=== PATIENT | male | born 1970 | race Caucasian/White ===

== ENCOUNTER 2016-08-28 06:32 | Inpatient (IN) ==
--- NOTE | 2016-08-28 07:12 | Anesthesia Evaluation PreOp ---
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 Any Significant HX Other Medical History: Other (rectal CA) Anesthesia History: No Prior Anesthetic Complications, Past Anesthesia (spinal for left leg surgery) Alcohol Use: none Drug use: none Medications and Allergies Omeprazole [PriLOSEC] 20 mg PO DAILY #30 cap 05/02/16 [Rx] Prochlorperazine Maleate [Compazine] 10 mg PO Q6HR PRN #60 tablet 05/02/16 [Rx] Sucralfate [Carafate] 1 gm PO QID #120 tablet 06/03/16 [Rx] Allergies Penicillins [PCN] Allergy (Verified 08/28/16 07:10) Unknown Childhood Reaction - Meds/Allergy Pre-op Review Medications Reviewed: Yes Allergies Reviewed: Yes Beta Blockers on Current Med List: No Anesthesia Results - Labs Laboratory Tests 08/20/16 08/20/16 08:40 08:40 Hgb 13.7 Hct 41.1 Plt Count 219 Sodium 144 Potassium 4.0 BUN 12 Creatinine 0.81 Anesthesia Exam Selected Entries 08/28/16 06:56 Temperature 98.3 F Pulse Rate 82 Respiratory Rate 18 Blood Pressure 133/78 O2 Sat by Pulse Oximetry 100 Height: 72in Weight: 270lbs NPO (# of Hours): 8 Pain Scale: 0 Pain Scale Used: Numeric (1 - 10) - HEENT Pupil (Motor): EOMI Mallampati: II Teeth: Normal Oral Opening: Less than or equal to 3 - TIRE ROOM SUPERVISOR LOC: Oriented TIRE ROOM SUPERVISOR Motor: Normal RUE, Normal LUE, Normal RLE, Normal LLE, Normal Face TIRE ROOM SUPERVISOR Sensory: Normal: RUE, LUE, RLE, LLE, Face - Cardiac Rhythm: Regular Murmur: None - Pulmonary Breath Sounds: bilateral Clear Respiratory Effort: Symmetrical Anesthesia Assess/Plan ASA Score: 3 Modified [place] Scale for Level of Consciousness: Cooperative, oriented, and tranquil Anesthetic Plan: General (for 08/29/16), MAC (for 08/28/16) Monitoring Plan: Standard Monitors Recovery Plan: PACU (Discussed MAC for colonscopy and GA for resection. Questions answered and agrees to proceed.)
[2016-08-28] MEDS ORDERED: Simethicone 40 MG/0.6 ML MLS IR ONE (07:53)
[2016-08-28] MEDS ORDERED: *HR* Midazolam HCl 5 MG/5 ML VIAL IVP PRN (07:53)
[2016-08-28] MEDS ORDERED: *HR* FentaNYL (PF) 100 MCG/2 ML VIAL IVP PRN (07:53)
--- NOTE | 2016-08-28 07:53 | History & Physical Report ---
Date of Encounter: 08/28/16 Time of Encounter: 07:52 24 Hour HP Update - Instructions Instructions: If the History and Physical is less than 30 days old and was completed prior to A.M. admission and or procedure and has NOT been updated on calendar day of procedure please complete this update prior to performing procedure. - Update Patient reports changes in Medical Condition: No Changes in assessment/condition: No Changes in Medication: No Preop tests/diagnostics Reviewed: Yes Surgery Remains Indicated: Yes Consent for Planned Operative Procedure(s) Verified: Yes
--- NOTE | 2016-08-28 08:15 | Anesthesia Evaluation Post Op ---
Date of Encounter: 08/28/16 Time of Encounter: 08:13 - Vital Signs Vital Signs: 111/52, 78, 16 99% - Lungs Lungs: Clear Ascult./Percussion - Airway Airway: Non-obstructed - Cardiovascular Regular Rate - Mental Status Mental Status: Alert & Oriented, Answers Appropriately - Pain Pain Scale: 1 Pain Scale used: Numeric (1 - 10) - Nausea Vomiting Nausea Vomiting: Not Present - Hydration Hydration: NPO - Discharge PostOp Status: Transfer Patient to floor (pt fully awake, VSS)
[2016-08-28] MEDS: Ringers Solution, Lactated 1,000 ML IVC SCH (09:10)
[2016-08-28] MEDS ORDERED: *HR* Propofol 500 MG/50 ML BOTTLE IVC ONE (12:58)
[2016-08-28] MEDS ORDERED: Lidocaine -MPF 2% 5 ML VIAL INFILT ONE (12:58)
--- NOTE | 2016-08-28 19:26 | Anesthesia Evaluation PreOp ---
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 Any Significant HX Other Medical History: GERD, Other (Rectal CA) Anesthesia History: No Prior Anesthetic Complications, Past Anesthesia (spinal for Left Leg sx) Alcohol Use: none Drug use: none Medications and Allergies Omeprazole [PriLOSEC] 20 mg PO DAILY #30 cap 05/02/16 [Rx] Prochlorperazine Maleate [Compazine] 10 mg PO Q6HR PRN #60 tablet 05/02/16 [Rx] Sucralfate [Carafate] 1 gm PO QID #120 tablet 06/03/16 [Rx] Allergies Penicillins [PCN] Allergy (Verified 08/28/16 07:10) Unknown Childhood Reaction - Meds/Allergy Pre-op Review Medications Reviewed: Yes Allergies Reviewed: Yes Beta Blockers on Current Med List: No Anesthesia Results - Labs Laboratory Tests 07/04/16 08/20/16 08/20/16 10:57 08:40 08:40 WBC 5.8 Hgb 13.7 Hct 41.1 Plt Count 219 Sodium 144 Potassium 4.0 Chloride 108 Carbon Dioxide 24 BUN 12 Creatinine 0.81 Glucose 102 H Anesthesia Exam O2 Sat Height 1.8 m Height 1.8 m Height 1.8 m Height 1.8 m Weight 127.913 kg Weight 127.913 kg Weight 127.913 kg Weight 127.913 kg O2 Sat by Pulse Oximetry 99 O2 Sat by Pulse Oximetry 97 O2 Sat by Pulse Oximetry 98 O2 Sat by Pulse Oximetry 100 O2 Sat by Pulse Oximetry 99 O2 Sat by Pulse Oximetry 100 Vital Signs Temp Pulse Resp BP Pulse Ox 98.3 F 82 18 133/78 100 08/28/16 06:56 08/28/16 06:56 08/28/16 06:56 08/28/16 06:56 08/28/16 06:56 Vital Signs/O2 Sat, Most Current Temp Pulse Resp BP Pulse Ox 97.5 F L 74 18 148/73 99 08/28/16 15:40 08/28/16 15:40 08/28/16 15:40 08/28/16 15:40 08/28/16 15:40 Height: 5'11'' Weight: 282# NPO (# of Hours): > 8 hrs Pain Scale: 0 Pain Scale Used: Numeric (1 - 10) - HEENT Pupil (Motor): Pupils equal, EOMI Mallampati: III Teeth: Poor dentition (Chipped upper incisors) Oral Opening: Greater than 3 - HEAT TREATING BLUER LOC: Oriented HEAT TREATING BLUER Motor: Normal RUE, Normal LUE, Normal RLE, Normal LLE, Normal Face HEAT TREATING BLUER Sensory: Normal: RUE, LUE, RLE, LLE, Face - Cardiac Rhythm: Regular Murmur: None JVD: No Carotid Bruit: No - Pulmonary Breath Sounds: bilateral Clear Respiratory Effort: Symmetrical Anesthesia Assess/Plan ASA Score: 2 Modified [place] Scale for Level of Consciousness: Cooperative, oriented, and tranquil Anesthetic Plan: General Autologous Blood: Yes Monitoring Plan: Standard Monitors Recovery Plan: PACU
[2016-08-29] MEDS ORDERED: Famotidine 20 MG/2 ML VIAL ONE (07:54)
[2016-08-29] MEDS ORDERED: *HR* Propofol 200 MG/20 ML VIAL IVP ONE (09:09)
[2016-08-29] MEDS ORDERED: Lidocaine -MPF 2% 2 ML VIAL ONE (09:09)
[2016-08-29] MEDS ORDERED: *HR* Midazolam HCl 5 MG/5 ML VIAL IVP ONE (09:09)
[2016-08-29] MEDS ORDERED: *HR* FentaNYL (PF) 100 MCG/2 ML VIAL ONE ×2 (09:09→09:55)
[2016-08-29] MEDS ORDERED: CefOXitin 2,000 MG VIAL IVPB ONE (09:09)
[2016-08-29] MEDS ORDERED: *HR* Rocuronium Bromide 50 MG/5 ML VIAL ONE ×3 (09:09→10:56)
[2016-08-29] MEDS ORDERED: Ondansetron 4 MG/2 ML VIAL IVP PRN ×2 (09:14→15:45)
[2016-08-29] MEDS ORDERED: *HR* Promethazine 25 MG/ML VIAL IVP PRN (09:14)
[2016-08-29] MEDS ORDERED: *HR* Meperidine 25 MG/ML SYRINGE IVP PRN (09:14)
[2016-08-29] MEDS ORDERED: *HR* Labetalol 20 MG/4 ML SYRINGE IVP PRN (09:14)
[2016-08-29] MEDS: Ringers Solution, Lactated 1,000 ML IVC SCH (10:37)
[2016-08-29] MEDS ORDERED: *HR* Morphine 10 MG/ML VIAL ONE ×2 (11:11→12:18)
[2016-08-29] MEDS ORDERED: Neostigmine Methylsulfate 3 MG/3 ML SYRINGE ONE (11:56)
[2016-08-29] MEDS ORDERED: Dexamethasone 4 MG/ML VIAL ONE (12:21)
[2016-08-29] MEDS ORDERED: Ondansetron 4 MG/2 ML VIAL ONE (12:21)
[2016-08-29] MEDS ORDERED: Ketorolac 30 MG/ML VIAL ONE (12:31)
[2016-08-29] MEDS: *HR* HYDROmorphone (PF) 1 MG/ML SYRINGE IVP PRN ×3 (12:43→13:09)
--- NOTE | 2016-08-29 13:10 | Anesthesia Evaluation Post Op ---
Date of Encounter: 08/29/16 Time of Encounter: 13:09 - Vital Signs Vital Signs: Vital Signs/O2 Sat/Glucose, Most Current Temp Pulse Resp BP Pulse Ox 08/29/16 12:54 68 16 133/77 96 08/29/16 12:44 71 16 140/79 97 08/29/16 12:34 98.9 F 66 14 136/80 100 - Lungs Lungs: Clear Ascult./Percussion - Airway Airway: Non-obstructed - Cardiovascular Regular Rate - Mental Status Mental Status: Alert & Oriented, Answers Appropriately - Pain Pain Scale: 2 - Nausea Vomiting Nausea Vomiting: Not Present - Hydration Hydration: NPO - Discharge PostOp Status: Discharge Patient to home
[2016-08-29] MEDS ORDERED: Naloxone 0.4 MG/ML INJ IVP PRN (14:46)
[2016-08-29] MEDS ORDERED: *HR* HYDROmorphone 20 MG/20 ML PCA IV PRN (14:46)
[2016-08-29] MEDS: D5% in 0.45% NACL 1,000 ML IVC SCH (15:09)
[2016-08-29] MEDS: *HR* Heparin 5,000 UNIT/ML VIAL SQ SCH (18:51)
[2016-08-30] MEDS: D5% in 0.45% NACL 1,000 ML IVC SCH (03:04)
[2016-08-30 05:45] LABS: Basophils % 0.1 %; Hematocrit 37.8 % (37.5-50.1); Hemoglobin 12.5 g/dL (12.9-16.9); Immature Granulocytes % 0.4 % (0-4); Lymphocytes # 0.7 K/mcL (0.6-4.6); Mean Corpuscular HGB Conc 33.1 g/dL (31.6-35.5); Mean Corpuscular Hemoglobin 30.6 pg (28.0-33.3); Mean Corpuscular Volume 92.6 fL (83.0-100.0); Monocytes % 8.8 %; Neutrophils # 9.9 K/mcL (1.6-8.9); Platelet Count 191 K/mcL (140-400); Red Blood Count 4.08 M/mcL (4.19-5.50); Red Cell Distribution Width 12.5 % (11.5-14.5); Segmented Neutrophils % 84.7 %
[2016-08-30 06:04] LABS: BUN/Creatinine Ratio 9 (6-26); Blood Urea Nitrogen 7 mg/dL (8-26); Calcium 8.4 mg/dL (8.6-10.8); Carbon Dioxide 26 mEq/L (19-29); Chloride 107 mEq/L (98-109); Glucose 119 mg/dL (70-99); Osmolality,Calculated 289 (280-300); Potassium 4.2 mEq/L (3.5-4.5); Sodium 140 mEq/L (136-145); eGFR For African Americans > 60 (> 60); eGFR For Non-African Americans > 60 (> 60)
[2016-08-30] MEDS: *HR* Heparin 5,000 UNIT/ML VIAL SQ SCH ×2 (06:23→18:38)
[2016-08-30] MEDS ORDERED: D5% in 0.45% NACL 1,000 ML IVC SCH (12:00)
--- NOTE | 2016-08-30 16:24 | General Surgery Progress Note ---
Date of Encounter: 08/30/16 Time of Encounter: 08:55 - Assessment and Plan (1) Rectal cancer Current Visit: No Status: Acute POD#1 s/p rectal resection by Dr. Diamond on 08/29/16 Tolerating clear liquids. IV fluids decreased to 60ml/hr. Supportive care/pain control. Encouraged to ambulate 3-4 times daily to improve gut motility and reduce discomfort associated to gas in the bowels. Subjective Patient reports: still having pain (soreness in pelvis. Severe, sharp "gas" pains in upper/mid abdomen, improved with ambulating in the day.), tolerating liquids well, no flatus, no bowel movement, afebrile Objective Vital Signs - Last 8 Hours Temp Pulse Resp BP Pulse Ox 08/30/16 11:10 98 F 86 15 116/67 96 Intake and Output 08/30/16 08/30/16 08/30/16 07:59 15:59 23:59 Intake Total 1000 / 1000 Output Total 1487 / 1487 790 / 790 Balance -487 / -487 -790 / -790 Intake: IV Fluids 1000 / 1000 D5% And 0.45% Nacl 1000 1000 / 1000 Ml Bag 1,000 ML @ 90 mls/ hr IVC .[id number] [facility] Rx#: [id number] Output: Catheter 1425 / 1425 750 / 750 Wound Drainage 40 / 40 Right Upper Abdomen 40 / 40 Other: Weight 129.25 kg Patient Weight 08/30/16 23:59 Weight 129.25 kg - General physical appearance well developed, well nourished, no distress, obese - Eyes normal ocular movement - ENT normal mucosa, atraumatic, normocephalic - Neck Neck exam: trachea midline - Respiratory normal respiratory effort, clear to auscultation - Cardiovascular Cardiovascular exam: Present: tachycardia - Abdomen Abdomen: Present: bowel sounds present, soft, tender (pelvis, expected post- operative tenderness), wound (FCO drain with 102ml of serosangnious fluid noted since midnight.) - Neurologic CN 2-12 grossly intact - Psychiatric oriented to time, oriented to person, oriented to place, speech is normal, memory intact - Labs 08/30/16 05:24 08/30/16 05:24 Diabetes panel 08/30/16 Range/Units 05:24 Sodium 140 (136-145) mEq/L Potassium 4.2 (3.5-4.5) mEq/L Chloride 107 (98-109) mEq/L Carbon Dioxide 26 (19-29) mEq/L BUN 7 L (8-26) mg/dL Creatinine 0.77 (0.72-1.25) mg/dL Glucose 119 H (70-99) mg/dL Calcium 8.4 L (8.6-10.8) mg/dL Calcium panel 08/30/16 Range/Units 05:24 Calcium 8.4 L (8.6-10.8) mg/dL Pituitary panel 08/30/16 Range/Units 05:24 Sodium 140 (136-145) mEq/L Potassium 4.2 (3.5-4.5) mEq/L Chloride 107 (98-109) mEq/L Carbon Dioxide 26 (19-29) mEq/L BUN 7 L (8-26) mg/dL Creatinine 0.77 (0.72-1.25) mg/dL Glucose 119 H (70-99) mg/dL Calcium 8.4 L (8.6-10.8) mg/dL Adrenal panel 08/30/16 Range/Units 05:24 Sodium 140 (136-145) mEq/L Potassium 4.2 (3.5-4.5) mEq/L Chloride 107 (98-109) mEq/L Carbon Dioxide 26 (19-29) mEq/L BUN 7 L (8-26) mg/dL Creatinine 0.77 (0.72-1.25) mg/dL Glucose 119 H (70-99) mg/dL Calcium 8.4 L (8.6-10.8) mg/dL Consult Discharge Plan - Plan Referrals: Dominic Pagan MD [Primary Care Provider] -
[2016-08-31] MEDS: *HR* Heparin 5,000 UNIT/ML VIAL SQ SCH ×2 (06:03→18:12)
[2016-08-31 07:34] LABS: Basophils % 0.3 %; Eosinophils # 0.1 K/mcL (0.0-0.6); Eosinophils % 0.6 %; Hematocrit 38.5 % (37.5-50.1); Hemoglobin 12.7 g/dL (12.9-16.9); Immature Granulocytes % 0.5 % (0-4); Lymphocytes # 0.8 K/mcL (0.6-4.6); Mean Corpuscular Hemoglobin 30.8 pg (28.0-33.3); Mean Corpuscular Volume 93.4 fL (83.0-100.0); Mean Platelet Volume 10.3 fL (9.4-12.4); Monocytes % 10.4 %; Neutrophils # 7.4 K/mcL (1.6-8.9); Platelet Count 170 K/mcL (140-400); Red Blood Count 4.12 M/mcL (4.19-5.50); Red Cell Distribution Width 12.5 % (11.5-14.5); Segmented Neutrophils % 79.2 %
[2016-08-31 07:43] LABS: BUN/Creatinine Ratio 9 (6-26); Blood Urea Nitrogen 7 mg/dL (8-26); Calcium 8.3 mg/dL (8.6-10.8); Carbon Dioxide 26 mEq/L (19-29); Chloride 105 mEq/L (98-109); Glucose 96 mg/dL (70-99); Osmolality,Calculated 286 (280-300); Potassium 3.9 mEq/L (3.5-4.5); Sodium 139 mEq/L (136-145); eGFR For African Americans > 60 (> 60); eGFR For Non-African Americans > 60 (> 60)
--- NOTE | 2016-08-31 16:26 | General Surgery Progress Note ---
Date of Encounter: 08/31/16 Time of Encounter: 12:45 - Assessment and Plan (1) Rectal cancer Current Visit: No Status: Acute POD#2 s/p rectal resection by Dr. Diamond on 08/29/16 Tolerating clear liquids. Supportive care/pain control. Encouraged to ambulate 3-4 times daily to improve gut motility and reduce discomfort associated to gas in the bowels. Subjective Patient reports: no new complaints, feels better (less gas pains today), tolerating liquids well (though "gas pains" worse with eating.), flatus, bowel movement, afebrile Objective Vital Signs - Last 8 Hours Temp Pulse Resp BP Pulse Ox 08/31/16 15:48 100.1 F H 93 18 127/76 95 Intake and Output 08/31/16 08/31/16 08/31/16 07:59 15:59 23:59 Intake Total 597 / 597 120 / 120 Output Total 0 / 0 405 / 405 0 / 0 Balance -1453 / -1453 -285 / -285 0 / 0 Intake: IV Fluids 597 / 597 D5% And 0.45% Nacl 1000 597 / 597 Ml Bag 1,000 ML @ 60 mls/ hr IVC .[id number] [facility] Rx#: [id number] Oral 0 / 0 120 / 120 Output: Urine 650 / 650 0 / 0 Urethral ([place]) 650 / 650 Catheter 1175 / 1175 350 / 350 Wound Drainage 225 / 225 55 / 55 0 / 0 Right Upper Abdomen 225 / 225 55 / 55 0 / 0 Other: Meal Breakfast Stool Size Moderate Stool Consistency loose Stool Color Brown Weight 129.2 kg Patient Weight 08/31/16 23:59 Weight 129.2 kg - General physical appearance well developed, well nourished, no distress, obese - Eyes normal ocular movement - ENT normal mucosa, atraumatic, normocephalic - Neck Neck exam: trachea midline - Respiratory normal respiratory effort, clear to auscultation - Cardiovascular Cardiovascular exam: Present: tachycardia - Abdomen Abdomen: Present: bowel sounds present, soft, distended, tender (beverly, expected post-operative tenderness), wound (FCO drain with 280ml of serosangnious fluid noted since midnight.)) - Integumentary no rash - Neurologic CN 2-12 grossly intact - Psychiatric oriented to time, oriented to person, oriented to place, speech is normal, memory intact - Labs 08/31/16 06:33 08/31/16 06:33 Diabetes panel 08/31/16 Range/Units 06:33 Sodium 139 (136-145) mEq/L Potassium 3.9 (3.5-4.5) mEq/L Chloride 105 (98-109) mEq/L Carbon Dioxide 26 (19-29) mEq/L BUN 7 L (8-26) mg/dL Creatinine 0.80 (0.72-1.25) mg/dL Glucose 96 (70-99) mg/dL Calcium 8.3 L (8.6-10.8) mg/dL Calcium panel 08/31/16 Range/Units 06:33 Calcium 8.3 L (8.6-10.8) mg/dL Pituitary panel 08/31/16 Range/Units 06:33 Sodium 139 (136-145) mEq/L Potassium 3.9 (3.5-4.5) mEq/L Chloride 105 (98-109) mEq/L Carbon Dioxide 26 (19-29) mEq/L BUN 7 L (8-26) mg/dL Creatinine 0.80 (0.72-1.25) mg/dL Glucose 96 (70-99) mg/dL Calcium 8.3 L (8.6-10.8) mg/dL Adrenal panel 08/31/16 Range/Units 06:33 Sodium 139 (136-145) mEq/L Potassium 3.9 (3.5-4.5) mEq/L Chloride 105 (98-109) mEq/L Carbon Dioxide 26 (19-29) mEq/L BUN 7 L (8-26) mg/dL Creatinine 0.80 (0.72-1.25) mg/dL Glucose 96 (70-99) mg/dL Calcium 8.3 L (8.6-10.8) mg/dL - VTE Documentation of Mechanical Device: Intermittent pneumatic compression device Consult Discharge Plan - Plan Referrals: Dominic Pagan MD [Primary Care Provider] -
[2016-08-31] MEDS: *HR* OxyCODONE/APAP 5/325 TABLET PO PRN (21:51)
[2016-09-01] MEDS: *HR* Heparin 5,000 UNIT/ML VIAL SQ SCH ×2 (06:00→20:31)
--- NOTE | 2016-09-01 15:01 | Discharge Summary ---
Date of Encounter: 09/02/16 Time of Encounter: 14:11 - Discharge Diagnosis (1) Rectal cancer Priority: Primary Status: Acute - Discharge Medications Prescriptions: OxyCODONE/APAP 5/325 [Percocet 5/325 MG] 1 each PO Q6HR PRN #30 tablet PRN Reason: Pain Docusate [Colace] 100 mg PO BID PRN #30 capsule PRN Reason: Constipation Lactose-Reduced Food [Ensure High Protein] 1 bottle PO QID #50 can Simethicone [Gas-X] 80 mg PO TID PRN #30 tab.chew PRN Reason: Dyspepsia Home Medications: Omeprazole [PriLOSEC] 20 mg PO DAILY #30 cap 05/02/16 [Rx] Prochlorperazine Maleate [Compazine] 10 mg PO Q6HR PRN #60 tablet 05/02/16 [Rx] Sucralfate [Carafate] 1 gm PO QID #120 tablet 06/03/16 [Rx] Docusate [Colace] 100 mg PO BID PRN #30 capsule 09/01/16 [Rx] OxyCODONE/APAP 5/325 [Percocet 5/325 MG] 1 each PO Q6HR PRN #30 tablet 09/01/16 [Rx] Lactose-Reduced Food [Ensure High Protein] 1 bottle PO QID #50 can 09/02/16 [Rx] Simethicone [Gas-X] 80 mg PO TID PRN #30 tab.chew 09/02/16 [Rx] Allergies/Adverse Reactions: Allergies Penicillins [PCN] Allergy (Verified 08/28/16 07:10) Unknown Childhood Reaction General Surgery Exam Initial Vital Signs Temp Pulse Resp BP Pulse Ox 98.3 F 82 18 133/78 100 08/28/16 06:56 08/28/16 06:56 08/28/16 06:56 08/28/16 06:56 08/28/16 06:56 - General physical appearance well developed, well nourished, no distress - Eyes normal ocular movement - ENT normal mucosa, atraumatic, normocephalic - Neck trachea midline - Respiratory normal respiratory effort, clear to auscultation - Cardiovascular Cardiovascular exam: Present: RRR, 15, 16 - Abdomen Abdomen general surgery: Present: bowel sounds present, soft, tender (minimal, expected post-operative tenderness), wound (FCO drain to bulb suction with serousang. drainage noted (125ml today)) - Incision Incision: Present: clean and dry, intact - Integumentary Integumentary general surgery: Present: warm and dry - Neurologic Present: CN 2-12 grossly intact, normal coordination, normal sensation - Musculoskeletal Present: normal gait, normal posture - Psychiatric Psychiatric general surgery: Present: appropriate, oriented to person, oriented to place, oriented to time, speech is normal, memory intact Date of admission: 08/29/16 15:44 Primary care physician: Dominic Pagan MD Discharging clinician: Vik Diamond ([facility]) Anticipated date of discharge: 09/02/16 - Patient Status Disposition: Home, Self-Care Condition: Good Functional capacity at discharge: independent ambulation Overall status at discharge: patient is progressing back to baseline - Discharge Instructions Follow Up With: Vik Diamond DO [Partnered Physician] - 09/16/16 9:35 am (surgery follow-up) Additional Instructions: #1 may shower, no tub bath for 2 weeks #2 wash incisions with soap and water and pat dry daily #3 no lifting, pushing, pulling more than 15 pounds for the next 4 weeks #4 no driving until off narcotics for 24 hours and able to safely react in the car #5 may climb stairs #6 FCO drain- wash around drain with soap and water and pat dry, apply split 4X4 gauze and tape to secure daily. Empty drain 2 times daily and as needed. Record output and bring to follow-up appointment on 09/16/[address] Diamond. - Diet and Activity Activity: other (See additional instructions above) Diet: other (thin liquid diet for the next 6 days (ensure or equivalent- 4 cans per day); may advance to full liquid diet on 09/08/16) - Hospital Course Hospital course: Mr. Okeefe is a 45 year old male with a history of rectal cancer. He is POD # 3 from a LAR with Dr. Diamond. He is tolerating a liquid diet without nausea/ vomiting. He is having regular liquid bowel movements and flatus. Vitals are stable and he is afebrile. He is voiding and ambulating without difficulty. We will begin discharge planning and plan for outpatient follow-up in the next 10- 14 days. - Time Spent with Patient Total time spent providing and/or coordinating discharge services: Less than 30 minutes - Attending Attestation I examined this patient and my medical decision-making was reviewed with the VACUUM SYSTEM TESTER/PA/Advanced Practice Nurse/Resident Physician. I agree with the documented findings, disposition and treatment plan as described except to the extent set forth below.
[2016-09-01] MEDS: *HR* OxyCODONE/APAP 5/325 TABLET PO PRN ×2 (15:46→22:02)
--- NOTE | 2016-09-01 16:48 | General Surgery Progress Note ---
Date of Encounter: 09/01/16 Time of Encounter: 16:45 - Assessment and Plan (1) Rectal cancer Current Visit: No Status: Acute POD #[address] Diamond Continue clear liquid diet Supportive care/pain control Ambulate in the hallways Incentive Spirometer every 1 hour while awake Continue FCO drain Subjective Patient reports: feels better, still having pain, pain is less, tolerating liquids well, voiding w/o difficulty, flatus, bowel movement, diarrhea, fever ( Tmax 100.1, Tcurrent 100.5) Objective Vital Signs - Last 8 Hours Temp Pulse Resp BP Pulse Ox 09/01/16 14:30 99.5 F 85 18 129/82 95 09/01/16 11:00 98.7 F 86 20 115/75 96 Intake and Output 09/01/16 09/01/16 09/01/16 07:59 15:59 23:59 Intake Total 250 / 250 820 / 820 Output Total 450 / 450 950 / 950 Balance -200 / -200 -130 / -130 Intake: Oral 250 / 250 820 / 820 Output: Urine 400 / 400 875 / 875 Wound Drainage 50 / 50 75 / 75 Right Upper Abdomen 50 / 50 75 / 75 Other: Meal Lunch Percent of Meal Consumed 5% Stool Size Moderate Stool Consistency liquid Stool Color Brown Yellow Weight 128.6 kg Patient Weight 09/01/16 23:59 Weight 128.6 kg - General physical appearance well developed, well nourished, no distress - Eyes normal ocular movement - ENT normal mucosa - Neck Neck exam: trachea midline - Respiratory normal respiratory effort, clear to auscultation - Cardiovascular Cardiovascular exam: Present: RRR - Abdomen Abdomen: Present: bowel sounds present, soft, tender (expected post-operative tenderness) - Incision Incision: Present: clean and dry, intact - Integumentary no rash, no growths, no abnormal pigmentation - Neurologic CN 2-12 grossly intact - Musculoskeletal normal gait, normal posture - Psychiatric oriented to time, oriented to person, oriented to place, speech is normal, memory intact - Labs 08/31/16 06:33 08/31/16 06:33 - VTE Documentation of Mechanical Device: Intermittent pneumatic compression device Consult Discharge Plan - Plan Additional Instructions: #1 may shower, no tub bath for 2 weeks #2 wash incisions with soap and water and pat dry daily #3 no lifting, pushing, pulling more than 15 pounds for the next 4 weeks #4 no driving until off narcotics for 24 hours and able to safely react in the car #5 may climb stairs Referrals: Vik Diamond DO [Partnered Physician] - 09/16/16 9:35 am (surgery follow-up) Dominic Pagan MD [Primary Care Provider] - Prescriptions: OxyCODONE/APAP 5/325 [Percocet 5/325 MG] 1 each PO Q6HR PRN #30 tablet PRN Reason: Pain Docusate [Colace] 100 mg PO BID PRN #30 capsule PRN Reason: Constipation - Attending Attestation I examined this patient and my medical decision-making was reviewed with the STOCK TURNER/PA/Advanced Practice Nurse/Resident Physician. I agree with the documented findings, disposition and treatment plan as described except to the extent set forth below.
[2016-09-02] MEDS: *HR* OxyCODONE/APAP 5/325 TABLET PO PRN ×2 (04:06→14:18)
[2016-09-02] MEDS: *HR* Heparin 5,000 UNIT/ML VIAL SQ SCH (06:22)
[2016-09-02] MEDS ORDERED: Miconazole w/zinc oxide&karaya 92 APPL/92 GM TUBE TP SCH (10:15)
[2016-09-02 12:20] VITALS: BP 129/86
[2016-09-02] MEDS ORDERED: Simethicone 80 MG TAB.CHEW PO PRN (14:11)
--- NOTE | 2016-09-04 17:53 | Operative Note ---
Date of procedure: 08/29/16 Pre-op diagnosis: Rectal cancer Post-op diagnosis: same Procedure: Robotic low anterior resection with 33 mm EEA stapling Anesthesia: MARCUS Surgeon: Vik Diamond Estimated blood loss (cc): 50 Specimen: Rectum and meso rectum Condition: stable Disposition: same day Procedure in Detail: After informed consent, patient taken operating room placed supine position. After adequate sedation anesthesia patient was placed in a lithotomy position. After proper timeout a 12 mm cannula site was placed right superior to the umbilicus. Pneumoperitoneum was greater. A 13 mm cannula was placed in right lower quadrant. 5 mm camera was placed in the right upper quadrant. An 8 mm cannula was placed in subxiphoid region followed by another 8 mm in the left lower quadrant. Patient was placed in a headdown position. The robot was docked over the patient's left hip. Small bowel swept out of the pelvis. Rectosigmoid colon was then grasped and retracted cephalad. The peritoneum was then scored level of the sacral promontory. The left ureter was identified and kept on harm's way. The inferior mesenteric artery was then taken with a vessel sealer. The lateral rectosigmoid stalks were taken down the vessel sealer. The dissection was carried out down to the pelvic floor. The pelvic floor musculature was easily visualized. Rectosigmoid colon was dissected free from the retro-pubic tubercle region and the seminal vesicles were kept out of harm's way. Once it was freed a 45 mm robotic Endo staplers fired across the rectum. Once it was retracted and area was demarcated on the rectosigmoid sigmoid colon for transection. Indocyanine green was infused and we had excellent perfusion. A counterincision was made in the suprapubic region. Dissection carried down the anterior rectus sheath. The rectus muscles were then divided in the midline with Shira clamp. Once they were split the rectum and mesorectum were delivered. Omer bowel clamps are used to place across the colon proximal and distal and transected. Allis clamps are placed on the bowel and then a pursestring suture device placed on the colon. 3-0 Prolene suture was passed. A pursestring sutures and created and a 33 mm EEA anvil was placed. Suture was tied and secured. Colon was then placed back in the pelvis. The stapler was passed through the anal canal and to the rectal stump and then the spear was placed through the staple line. The anvil was then connected secured and fired. There were 2 excellent donuts. A leak test revealed no leak. At that point the procedure was terminated. All incisions are closed with 0 Vicryl suture and 4-0 Vicryl suture. Marcaine was inserted in the Pfannenstiel incision. He tolerated the procedure well.
== END 2016-09-02 15:30 | disposition home or self-care (01) | DRG 333 ==
LOC: SAMDAY 06:32 → 3ANU 09:08
PROVIDERS: ADMIT Surgery; ATTEND Surgery